=== PATIENT | male | born 1960 | race Caucasian/White ===

== ENCOUNTER 2017-10-10 14:11 | Emergency (ER) | payer SELFPAY ==
[2017-10-10 16:13] VITALS: BP 159/100; PULSE 89; RESP 20; TEMP 37.7; O2SAT 99; BMI 25.7
--- NOTE | 2017-10-10 16:29 | HMH.EDUTC ---
[facility] [place] Disposition Clinical Impression: Influenza-like illness, Exposure to influenza, Irregular heart rate Disposition: Home, Self-Care Condition on Discharge: Good Instructions: Premature Ventricular Beats, DI for Influenza -- Adult, DI for Arrhythmias Additional Instructions: * Your irregular heartrate was concerning as we discussed. Althrough it sounds like possibly premature beats, an EKG is necessary to confirm that. A workup to include at least labs and EKG is necessary to find cause. Follow up extremely important and if symptoms worsen or you develop new symptoms, follow up immediately!!!! * No sign of bacterial infection. Likely viral. Virus can take 7-14 days to run their course. Could be the start of the flu considering your symptoms and your flu test was a false negative with symptoms just starting * Start Tamiflu today if you are going to take it. Discussed risks and possible benefits. * Lots of rest * Increase fluids, water, gatorade, powerade, pedialyte if infant/toddler/child * Monitor Temp. Tylenol every 4 hours as needed no more then 5 times a day or 4000mg in 24 hours and/or ibuprofen every 6 hours as needed no more then 3200mg in 24 hours (as long as your primary care doctor has told you that it is ok to take both) for fever/aches/pain. ER if fever no less than 101 despite tylenol and Ibuprofen * You (or your child) are contagious until no fever, aches, chills x 24 hours without medication for symptoms. * Encourage fluids, water, gatorade, powerade, pedialyte if infant/toddler/child * warm salt water gargles * warm fluids * sore throat lozenges * sleep elevated * humidifier/vaporizer * flonase 2 sprays each nostril daily but may take 2-3 days to notice improvement with it. * Bromfed may cause drowsiness. Know how it effects you (or your child) before driving, caring for small children, or sending your child to school. No other antihistamines/allergy medications while taking bromfed. Prescriptions: Brompheniramine/Pseudoephed/Dm [Bromfed DM Cough Syrup 5mL] 10 ml PO QID PRN #240 ml PRN Reason: Cough Fluticasone Propionate [Flonase 50mcg nasal spray 16gm] 2 spr NS DAILY #1 bottle Oseltamivir Phosphate [Tamiflu 75mg Capsule] 75 mg PO BID #10 cap Referrals: Manuel Dubose [Primary Care Provider] - (Thursday for irregular heartrate. Return immediately for new or worsening symptoms and if no noticeable improvement in flu symptoms over the next 3-4 days) Time of Disposition: 16:52 Medical Decision Making Vital Signs: 10/10/17 16:13 Temperature 99.8 F H Temperature Source Temporal Artery Scan Pulse Rate [Brachial] 89 Respiratory Rate 20 Blood Pressure [Right Arm] 159/100 Blood Pressure Mean [Right Arm] 119 Blood Pressure Source [Right Arm] Automatic Cuff Blood Pressure Position [Right Arm] Sitting 02 Sat by Pulse Oximetry 99 Oxygen Delivery Method Room Air - Klever Inquiry Pt receiving controlled substance: No - Reevaluation(s) Time: 16:45 Reevaluation #1: Discussed irregular HR and elevated BP with patient and . Aware of possible differentials and the importance of further evaluation to determine rhythm but also the cause. Does not want further evaluation at this time. Agrees to follow up with primary care doctor. [facility] [place] HPI - General Stated complaint: aches all over,congestion Time Seen by Provider: 10/10/17 16:30 Mode of Arrival: Ambulatory Source of Information: Patient Limitations: No Limitations Description of Symptoms (Recalled from Triage Doc. by RN): bad cough with phlegm and congestion that started on HEENT Symptoms (Recalled from RN notes): Yes Resp Symptoms (Recalled from RN notes): Yes Skin Symptoms (Recalled from RN notes): No MS Symptoms (Recalled from RN notes): No Functional Status (Recalled from RN notes): na - History of Present Illness Provider Complaint: c/o a bad cold . Nonprod cough, body aches, chills, rhinorrhea, nasal congestion since last night. Exposed to
--- NOTE | 2017-10-10 16:42 | ED_ITS ---
[facility] [place] Disposition Clinical Impression: Influenza-like illness, Exposure to influenza, Irregular heart rate Disposition: Home, Self-Care Condition on Discharge: Good Instructions: Premature Ventricular Beats, DI for Influenza -- Adult, DI for Arrhythmias Additional Instructions: * Your irregular heartrate was concerning as we discussed. Althrough it sounds like possibly premature beats, an EKG is necessary to confirm that. A workup to include at least labs and EKG is necessary to find cause. Follow up extremely important and if symptoms worsen or you develop new symptoms, follow up immediately!!!! * No sign of bacterial infection. Likely viral. Virus can take 7-14 days to run their course. Could be the start of the flu considering your symptoms and your flu test was a false negative with symptoms just starting * Start Tamiflu today if you are going to take it. Discussed risks and possible benefits. * Lots of rest * Increase fluids, water, gatorade, powerade, pedialyte if infant/toddler/child * Monitor Temp. Tylenol every 4 hours as needed no more then 5 times a day or 4000mg in 24 hours and/or ibuprofen every 6 hours as needed no more then 3200mg in 24 hours (as long as your primary care doctor has told you that it is ok to take both) for fever/aches/pain. ER if fever no less than 101 despite tylenol and Ibuprofen * You (or your child) are contagious until no fever, aches, chills x 24 hours without medication for symptoms. * Encourage fluids, water, gatorade, powerade, pedialyte if infant/toddler/ child * warm salt water gargles * warm fluids * sore throat lozenges * sleep elevated * humidifier/vaporizer * flonase 2 sprays each nostril daily but may take 2-3 days to notice improvement with it. * Bromfed may cause drowsiness. Know how it effects you (or your child) before driving, caring for small children, or sending your child to school. No other antihistamines/allergy medications while taking bromfed. Prescriptions: Brompheniramine/Pseudoephed/Dm [Bromfed DM Cough Syrup 5mL] 10 ml PO QID PRN # 240 ml PRN Reason: Cough Fluticasone Propionate [Flonase 50mcg nasal spray 16gm] 2 spr NS DAILY #1 bottle Oseltamivir Phosphate [Tamiflu 75mg Capsule] 75 mg PO BID #10 cap Referrals: Manuel Dubose [Primary Care Provider] - (Thursday for irregular heartrate. Return immediately for new or worsening symptoms and if no noticeable improvement in flu symptoms over the next 3-4 days) Time of Disposition: 16:52 Medical Decision Making Vital Signs: 10/10/17 16:13 Temperature 99.8 F H Temperature Source Temporal Artery Scan Pulse Rate [Brachial] 89 Respiratory Rate 20 Blood Pressure [Right Arm] 159/100 Blood Pressure Mean [Right Arm] 119 Blood Pressure Source [Right Arm] Automatic Cuff Blood Pressure Position [Right Arm] Sitting 02 Sat by Pulse Oximetry 99 Oxygen Delivery Method Room Air - Klever Inquiry Pt receiving controlled substance: No - Reevaluation(s) Time: 16:45 Reevaluation #1: Discussed irregular HR and elevated BP with patient and . Aware of possible differentials and the importance of further evaluation to determine rhythm but also the cause. Does not want further evaluation at this time. Agrees to follow up with primary care doctor. [facility] [place] HPI - General Stated complaint: aches all over,congestion Time Seen by Provider: 10/10/17 16:30 Mode of Arrival: Ambulatory Source of Information: Patient Limitations: No Limitations Description of Symptoms (Recalled from Triage Doc. b
[2017-10-20 15:37] LABS: UTC Influenza A Antigen Negative (Negative); UTC Influenza B Antigen Negative (Negative)
== END 2017-10-10 16:54 | disposition home or self-care (01) ==
PROVIDERS: Emergency Provider Nurse Practitioner Family; PCP Internal Medicine
DX: Z20.828 Contact with and (suspected) exposure to other viral communicable diseases (principal); I49.9 Cardiac arrhythmia, unspecified; I10 Essential (primary) hypertension
CPT/HCPCS: 87276; 87804; 99202

== ENCOUNTER → 2019-05-26 10:05 | Outpatient (CLI) | payer OTHER, SELFPAY ==
--- NOTE | 2019-05-26 10:13 | MR_ITS ---
PROCEDURE: MR SHOULDER RT WO CON CLINICAL INDICATION: ACUTE PAIN OF RIGHT SHOULDER Right shoulder pain, fall with injury and pain with limited range of motion COMPARISON: No exams were available for comparison TECHNIQUE: Routine multiplanar multi echo sequences are performed without gadolinium enhancement. FINDINGS: There is mild acromioclavicular hypertrophy with low lying acromion. There is partial tear of the supraspinatus tendon with tear of the undersurface fibers and minimal ball enough of the tendon at the infra coquille medial region superficial fibers do appear intact distally. The infraspinatus, subscapularis, and teres minor tendons appear intact. There is some tendinopathy/tendinosis of the subscapularis tendon distally. The bicipital tendon is in place. There is a small amount of fluid around the bicipital tendon sheath. There is a nondisplaced fracture of the humeral head at the base of the greater tuberosity with edema of the humeral head laterally and at the greater tuberosity. The humeral neck does not appear fractured. A SLAP tear is suspected of the superior glenoid labrum IMPRESSION: 1. Nondisplaced fracture involves the humeral head at the greater tuberosity with bone contusion 2. Partial tear of the supraspinatus tendon distally and anteriorly 3. Slap tear suspected of the superior glenoid labrum Dictated by: Serjio Crawford MD 05/28/2019 11:46 Signed by: <Electronically signed by Serjio Crawford MD in [place]> 05/28/2019 11:54
== END ==
PROVIDERS: PCP Internal Medicine Adolescent Medicine; Visit Provider Internal Medicine Adolescent Medicine
DX: M25.511 Pain in right shoulder (principal)
CPT/HCPCS: 73221

== ENCOUNTER → 2019-06-01 14:28 | Outpatient (CLI) | payer OTHER, SELFPAY ==
--- NOTE | 2019-06-01 14:33 | XR_ITS ---
PROCEDURE: XR SHOULDER RT MIN 2V CLINICAL INDICATION: Shoulder FX Pain following injury, follow-up fracture COMPARISON: MR SHOULDER RT WO CON from 05/26/2019 FINDINGS: There is a nondisplaced fracture involving the base of the greater tuberosity extending along the lateral and superior aspect of the diaphyseal metaphyseal region. Fracture is nondisplaced. And there are 2 small opacities noted over the superior medial aspect of the humeral head and shoulder joint area possibly related artifact or small loose bodies. The glenohumeral joint and acromioclavicular joint is unremarkable. IMPRESSION: Nondisplaced fracture of the greater tuberosity as described above Dictated by: Serjio Crawford MD 06/01/2019 15:45 Signed by: <Electronically signed by Serjio Crawford MD in [place]> 06/01/2019 15:45
== END ==
PROVIDERS: PCP Internal Medicine Adolescent Medicine; Visit Provider Orthopaedic Surgery
DX: S42.91XA Fracture of right shoulder girdle, part unspecified, initial encounter for closed fracture (principal)
CPT/HCPCS: 73030

== ENCOUNTER → 2019-06-03 13:07 | Outpatient (CLI) | payer OTHER, SELFPAY ==
--- NOTE | 2019-06-03 13:34 | XR_ITS ---
PROCEDURE: XR HIP RT 2-3V W/PELVIS CLINICAL INDICATION: RT HIP PAIN COMPARISON: No exams were available for comparison FINDINGS: No fracture or dislocation. No lytic or blastic change. No significant degenerative change. IMPRESSION: Negative right hip Dictated by: Serjio Crawford MD 06/03/2019 14:46 Signed by: <Electronically signed by Serjio Crawford MD in [place]> 06/03/2019 14:46
== END ==
PROVIDERS: PCP Internal Medicine Adolescent Medicine; Visit Provider Internal Medicine Adolescent Medicine
DX: M25.551 Pain in right hip (principal)
CPT/HCPCS: 73502

== ENCOUNTER → 2019-06-24 10:00 | Outpatient (CLI) | payer OTHER, SELFPAY ==
--- NOTE | 2019-06-24 10:14 | XR_ITS ---
PROCEDURE: XR SHOULDER RT MIN 2V CLINICAL INDICATION: HUMERUS FX Patient fell from ladder 1 month ago COMPARISON: XR SHOULDER RT MIN 2V from 06/01/2019 FINDINGS: The nondisplaced fracture of the greater tuberosity humeral head is stable and unchanged in appearance from the previous study. Again there is a faint radiolucent line at the diametaphyseal zone consistent with the nondisplaced vertical extension of the fracture. The soft tissues appear normal. IMPRESSION: Stable nondisplaced fracture right humeral head and neck Dictated by: Dr. John Marino MD 06/24/2019 10:[address] John Marino MD in [place] 06/24/2019 10:44
== END ==
PROVIDERS: PCP Internal Medicine Adolescent Medicine; Visit Provider Orthopaedic Surgery
DX: S42.251A Displaced fracture of greater tuberosity of right humerus, initial encounter for closed fracture (principal)
CPT/HCPCS: 73030

== ENCOUNTER 2019-07-14 14:30 | Outpatient (RCR) | payer OTHER, SELFPAY ==
--- NOTE | 2019-07-01 14:44 | HMH.OTOPEV ---
OT Inpatient Evaluation Rehab OT Outpatient Eval Start: 07/01/19 14:30 Freq: Status: Active Protocol: Document 07/01/19 14:31 TFRY (Rec: 07/01/19 14:44 TFRY [id number]) Electronically Signed By Laura Garcia, OT 07/01/19 14:31 Outpatient Therapy Subjective History Subjective History This is a 59 year old right handed male referred to occupational therapy for right shoulder non-displaced greater tuberosity fx and partial RTC tear. Patient reports that he fell off of a step ladder on May 21. Chief Complaint Pain Symptom Type Ache Symptoms Relieved By Rest/Positioning Symptoms Aggravated By Physical Activity Prior Functional Limitations None Current Functional Limitations Lifting,Housework,Driving Symptom Description Activity Dependent Level of pain today (0-10) 0 Pain scale - at its best (0-10) 0 Pain scale - at its worst (0-10) 4 Shoulder/Elbow Eval Shoulder Objective Measurements Palpation Tenderness Shoulder Palpation Findings Muscle Guarding Shoulder ROM Right Shoulder ROM Limitations Pain Shoulder Abduction Active Range of 75 Motion (degrees) Shoulder Abduction Passive Range of 75 Motion (degrees) Shoulder Flexion Active Range of Motion 105 (degrees) Query Text: Shoulder Flexion Passive Range of Motion 155 (degrees) Shoulder External Rotation Active Range WFL of Motion (degrees) Shoulder External Rotation Passive Range WFL of Motion (degrees) Shoulder Internal Rotation Active Range WFL of Motion (degrees) Shoulder Internal Rotation Passive Range WFL of Motion (degrees) pain with active ROM shoulder exam right standard pain with passive ROM shoulder exam right standard decreased ROM shoulder exam standard right Shoulder MMT Shoulder Abduction Strength Grade 3- Fair- Shoulder Extension Strength Grade 3 Fair Shoulder Flexion Strength Grade 3 Fair Shoulder Horizontal Abduction Strength 3- Fair- Grade Shoulder Horizontal Adduction Strength 3- Fair- Grade Shoulder External Rotation Strength 3 Fair Grade Shoulder Internal Rotation Strength 3 Fair Grade Shoulder Strength Patient Testing Sitting Position Shoulder Special Tests Shoulder Drop Arm Test Positive Right Shoulder Empty Can (Supraspinatus) Test Positive Rig
== END 2019-07-14 14:35 | disposition home or self-care (01) ==
LOC: OT 14:30
PROVIDERS: Visit Provider Orthopaedic Surgery
DX: S42.254D Nondisplaced fracture of greater tuberosity of right humerus, subsequent encounter for fracture with routine healing (principal); M75.111 Incomplete rotator cuff tear or rupture of right shoulder, not specified as traumatic
CPT/HCPCS: 97110; 97140; 97165

== ENCOUNTER → 2023-03-27 08:48 | Outpatient (CLI) | payer OTHER, SELFPAY ==
[2023-03-27 09:34] LABS: Basophils % 0.4 % (0.1-2.0); Eosinophils # 0.1 K/mm3 (0.0-0.4); Eosinophils % 1.7 % (0.1-12.0); Hematocrit 47.2 % (42.0-52.0); Hemoglobin 15.8 g/dL (14.1-18.0); Lymphocytes # 1.4 K/mm3 (0.7-4.5); Mean Corpuscular HGB Conc 33.6 g/dL (31.8-35.4); Mean Corpuscular Hemoglobin 34.3 pg (27.0-31.2); Mean Corpuscular Volume 102.2 fl (80-94); Mean Platelet Volume 8.3 fl (7.4-10.4); Monocytes # 0.3 K/mm3 (0.1-1.0); Monocytes % 6.2 % (1.7-9.3); Neutrophils # 3.1 K/mm3 (1.8-7.8); Neutrophils % 62.7 % (37.0-80.0); Platelet Count 232 K/mm3 (142-424); Red Blood Count 4.62 M/mm3 (4.60-6.20); Red Cell Distribution Width 12.8 % (11.5-17.5); White Blood Count 4.9 K/mm3 (4.8-10.8)
[2023-03-27 10:11] LABS: Alanine Aminotransferase 30 U/L (12-78); Albumin Level 4.2 g/dl (3.5-5.0); Albumin/Globulin Ratio 1.5 (1.1-1.8); Alkaline Phosphatase 80 U/L (38-126); Anion Gap 14.3 mEq/L (5-15); Aspartate Amino Transferase 35 U/L (17-59); Bilirubin,Total 0.6 mg/dl (0.2-1.3); Blood Urea Nitrogen 11 mg/dl (9-20); Calcium 8.9 mg/dl (8.4-10.2); Carbon Dioxide 24 mmol/L (22.0-30.0); Chloride 107 mmol/L (98-107); Chol/HDL Ratio 3.1 (1-3.5); Cholesterol 166 mg/dl (140-200); Estimated Glomerular Filt Rate 114 ml/min (>60); GFR (African American) 138 ML/MIN (>60); Globulin 2.8 g/dL (1.3-3.2); Glucose 112 mg/dl (74-100); HDL Cholesterol 53 mg/dl (40-60); Potassium 4.3 mmoL/L (3.5-5.1); Sodium 141 mmol/L (136-145); Triglycerides 91 mg/dl (30-150); VLDL Cholesterol 18 mg/dL (0-40)
[2023-03-27 10:14] LABS: Hemoglobin A1C 5.2 % (4.0-6.0)
[2023-03-27 10:22] LABS: Direct LDL Cholesterol 87.55 mg/dL (100-129)
[2023-03-27 10:28] LABS: 25-OH Vitamin D, Total 19.5 ng/mL (30-100)
[2023-03-27 10:41] LABS: Thyroid Stimulating Hormone 1.38 uIU/mL (0.465-4.68)
[2023-03-27 11:00] LABS: Vitamin B12 278 pg/mL (239-931)
== END ==
PROVIDERS: PCP Nurse Practitioner Family; Visit Provider Nurse Practitioner Family
DX: Z00.00 Encounter for general adult medical examination without abnormal findings (principal); I10 Essential (primary) hypertension; R73.03 Prediabetes; R20.2 Paresthesia of skin; E55.9 Vitamin D deficiency, unspecified
CPT/HCPCS: 36415; 80053; 80061; 82306; 82607; 83036; 84443; 85025

== ENCOUNTER 2023-06-17 09:32 | Day surgery (SDC) | payer OTHER, SELFPAY ==
[2023-05-25 13:53] VITALS: BMI 25.1
[2023-06-17 09:50] VITALS: BP 168/97; PULSE 85; RESP 16; TEMP 36.6; O2SAT 98
--- NOTE | 2023-06-17 10:31 | P.PNANES_ITS ---
[facility] Disclaimer: The information contained in this section may have been updated after the patient was seen, as this information can be updated by other users. Medical History Hypertension Surgical History History of hernia surgery Family History Other Family history of cancer Family history of myocardial infarction Family history of stroke Social History Smoking Status: Never smoker alcohol intake: current substance use type: denies use current occupational status: employed Travel in the last 8 weeks: None household members: spouse housing: house lives independently: No marital status: education level: college service: No penitentiary: No caffeine: Yes special tad needs: No agree to transfusion: No do you feel safe at home: Yes victim of physical abuse: No victim of emotional abuse: No victim of sexual abuse: No would you like helpful sources: No [facility] Anesthesia Checklist Patient Identification Patient Identification: Arm Band and Family Structural Data Admitted From: Home Planned Operative Procedure/s: colonoscopy. Consent for Planned Operative Procedure(s) Verified: Yes Verified Documents: Surgical Consent and History and Physical NPO Status Verified Time NPO: 00:00 Additional verifications Patient : No Anesthesia Reactions: No Hx Blood Transfusions: No Blood Transfusion Reaction: No Cephalosporin Allergy: No Previous Colonoscopy: Yes Airway Assessment Mallampati Score:: Class II C-Spine Mobility Assessed: Yes TMJ Mobility Assessed: Yes Dentition: Good Dentition Neurological Assessment Level of Consciousness: Awake, Alert, Appropriate and Follows Commands Hx Seizures: No Numbness or tingling in extremities: No Anesthesia Plan Anesthesia Risk discussed: Yes Anesthesia Type: MAC Preoperative Comments Pre-Operative Comments: Hypertesion.
[2023-06-17 11:05] VITALS: O2SAT 100
--- NOTE | 2023-06-17 11:32 | HMH.SCOPE ---
Procedure: Date: 06/17/23 Patient Date of :: 1960 Procedure Performed:: Colonoscopy Indications:: Screening colonoscopy Performing Provider:: Bridger Aguilar MD Referring Provider:: Esme Solis APRN Sedation:: See RN records Procedure:: After placing the patient in the left lateral decubitus position, the colonoscopy was gently inserted into the rectum and under direct visualization advanced to the cecum which was identified by transillumination in the right lower quadrant, identification of the ileocecal valve, appendiceal orifice, and cecal strap. Color, texture, mucosa, and anatomy of the colon were carefully examined with the scope. Findings:: Anal canal: normal Rectum: Hemorrhoids Sigmoid colon: fair preparation Descending colon: Sessile polyps 6 mm and 3 mm in size. Removed with cold snare polypectomy (smallest polyp may not have been retrieved). Splenic flexure: normal Transverse colon: normal without polyps or inflammatory changes Hepatic flexure: normal Ascending colon: normal without polyps or inflammatory changes Cecum: not seen Terminal ileum: not visualized Impression: Polyps of descending colon Redundant sigmoid colon Cecum could not be intubated secondary to looping of the colonoscope within the sigmoid colon. Counter abdominal pressure was applied and patient maneuvering would not allow cecal intubation. Recommendations:: Await pathology results Barium enema to evaluate cecum Repeat colonoscopy in 3 years if barium enema is normal Complications:: None Estimated blood obtained (mL): 0 Colonoscopy Component Colonoscopy Component Was a colonoscopy performed during today's procedure?: Yes Recommended follow up colonoscopy of at least 10 years?: Yes
[2023-06-17 11:34] VITALS: BP 130/70; PULSE 90; RESP 18; TEMP 36.3; O2SAT 95
[2023-06-17 11:44] VITALS: BP 132/78; PULSE 90; RESP 20; O2SAT 99
[2023-06-17 11:54] VITALS: BP 128/75; PULSE 87; RESP 20; O2SAT 97
[2023-06-17 12:04] VITALS: BP 124/72; PULSE 85; RESP 20; O2SAT 99
== END 2023-06-17 12:20 | disposition home or self-care (01) ==
PROVIDERS: PCP Nurse Practitioner Family; Visit Provider Internal Medicine
PROC: (CPT 45385; principal; 2023-06-17 10:30)
DX: Z12.11 Encounter for screening for malignant neoplasm of colon (principal); K64.8 Other hemorrhoids; D12.4 Benign neoplasm of descending colon; K56.2 Volvulus
CPT/HCPCS: 45385; J2704

== ENCOUNTER → 2023-07-03 09:28 | Outpatient (CLI) | payer OTHER, SELFPAY ==
--- NOTE | 2023-07-03 09:32 | FL_ITS ---
FINAL REPORT CLINICAL HISTORY: incomplete colonoscopy fluoro time 2.53 DAP 4149.13 FINDINGS: BARIUM ENEMA HISTORY: Incomplete colonoscopy. PROCEDURE: Single-contrast barium was introduced by gravity drip. Spot and overhead films were obtained. FINDINGS: Credit Risk Modeler film is unremarkable. The colon is redundant. No constricting or obstructing lesions are identified to the level of the cecum. IMPRESSION: No constricting or obstructing lesions to the level of the cecum. FLUOROSCOPY TIME: 2 minutes 53 seconds. Reference are [facility]:4149.13 Films reviewed , interpreted and dictated by Dr. Phyllis Negron. Transcribed by Elvis Boston PA-C. Reviewed, Interpreted and Dictated by Phyllis Negron MD Transcribed by BILL Terrell Authenticated and . [facility]
== END ==
PROVIDERS: PCP Nurse Practitioner Family; Visit Provider Internal Medicine
DX: K63.9 Disease of intestine, unspecified (principal)
CPT/HCPCS: 74270

== ENCOUNTER 2023-11-24 15:51 | Outpatient (CLI) | payer OTHER, SELFPAY ==
--- NOTE | 2023-11-24 16:00 | XR_ITS ---
FINAL REPORT CLINICAL HISTORY: CERVICALGIA COMPARISON: None FINDINGS: CERVICAL SPINE 5 views were obtained. There is no acute fracture or malalignment. There is moderate disc space narrowing at C5-6. There are small posterior osteophytes. There is mild reversal of the cervical lordosis. Neuroforamen are adequately patent. IMPRESSION: Moderate degenerative changes without acute process. Reviewed, Interpreted and Dictated by Anthony Kellogg MD Transcribed by Isadora Rose Authenticated and [facility]
== END 2023-11-24 23:59 ==
PROVIDERS: PCP Nurse Practitioner Family; Visit Provider Nurse Practitioner Family
DX: M54.2 Cervicalgia (principal)
CPT/HCPCS: 72050

== ENCOUNTER 2024-12-20 09:42 | Outpatient (CLI) | payer OTHER, SELFPAY ==
--- NOTE | 2024-12-20 09:50 | US_ITS ---
FINAL REPORT CLINICAL HISTORY: .CHECK FOR PAD HAIR LESS LEGS FINDINGS: LOWER EXTREMITY SEGMENTAL PRESSURE MEASUREMENTS FINDINGS: Pressure indices are as follows: RIGHT LOWER EXTREMITY: Thigh: 0.99 Calf: 1.13 Ankle, posterior tibial artery: 1.22 Ankle, dorsalis pedis: 1.12 Toe: 0.82 NICOLA: 1.22 Comments: Within normal limits LEFT LOWER EXTREMITY: Thigh: 1.16 Calf: 1.13 Ankle, posterior tibial artery: 1.20 Ankle, dorsalis pedis: 1.22 Toe: 0.89 NICOLA: 1.22 Comments: Within normal limits IMPRESSION: No evidence of peripheral vascular disease in the bilateral lower extremities. Reviewed, Interpreted and Dictated by Candy Ley MD Transcribed by Isadora Rose Authenticated and . [facility]
== END 2024-12-20 23:59 | disposition home or self-care (01) ==
LOC: RT 09:43
PROVIDERS: PCP Nurse Practitioner Family; Visit Provider Internal Medicine Adolescent Medicine
DX: R20.2 Paresthesia of skin (principal)
CPT/HCPCS: 93923